=== PATIENT | male | born 1940 | race Caucasian/White ===

== ENCOUNTER 2021-11-22 14:52 | Observation (INO) ==
[2021-11-22 16:07] LABS: Albumin 4.2 g/dL (3.2-5.2); Albumin/Globulin Ratio 1.3 (1-3); Calcium 9.4 mg/dL (8.6-10.3); Globulin 3.3 g/dL (2-4); Total Bilirubin 0.6 mg/dL (0.2-1.0); Total Protein 7.5 g/dL (6.4-8.9); eGFR CKD-EPI 72.2 (>60)
[2021-11-22] MEDS ORDERED: Furosemide 40 mg/4 ml IV VIAL IV SLOW PU ONE (18:04)
[2021-11-22 18:44] LABS: ABS Basophils 0.1 10^3/ul (0-0.2); ABS Lymphocytes 1.4 10^3/ul (1.0-4.8); ABS Monocytes 0.6 10^3/ul (0-0.8); ABS Neutrophils 4.8 10^3/ul (1.5-7.7); Eosinophil % 0.6 %; Hematocrit 43 % (42-52); Hemoglobin 14.3 g/dL (14.0-18.0); Mean Corpuscular HGB Conc 34 g/dL (31-36); Mean Corpuscular Hemoglobin 30 pg (27-31); Mean Corpuscular Volume 89 fL (80-94); Mean Platelet Volume 8.9 fL (7.4-10.4); Nucleated Red Blood Cells % 0.2; Platelet Count 220 10^3/uL (150-450); Red Blood Count 4.78 10^6 /uL (4.18-5.48); Red Cell Distribution Width 15 % (10-15); White Blood Count 6.8 10^3/uL (3.5-10.8)
[2021-11-22 20:45] LABS: Urine Appearance Clear; Urine Bilirubin Negative (Negative); Urine Blood 1+ (Negative); Urine Color Yellow; Urine Glucose Negative (Negative); Urine Ketones Negative (Negative); Urine Nitrite Negative (Negative); Urine Protein Negative (Negative); Urine Specific Gravity 1.013 (1.002-1.030); Urine Urobilinogen Negative (Negative)
[2021-11-22 21:18] LABS: Urine Bacteria Absent (Absent); Urine Red Blood Cell 1+(3-5/hpf) (Absent); Urine White Blood Cell Trace(0-5/hpf) (Absent)
[2021-11-22] MEDS: Enoxaparin 40 MG/0.4 ML SYR SUBCUT SCH (21:22)
[2021-11-23 06:44] LABS: ABS Basophils 0.1 10^3/ul (0-0.2); ABS Eosinophils 0.1 10^3/ul (0-0.6); ABS Lymphocytes 1.4 10^3/ul (1.0-4.8); ABS Monocytes 0.6 10^3/ul (0-0.8); ABS Neutrophils 4.2 10^3/ul (1.5-7.7); Eosinophil % 0.9 %; Hematocrit 41 % (42-52); Lymphocyte % 22.4 %; Mean Corpuscular HGB Conc 34 g/dL (31-36); Mean Corpuscular Hemoglobin 30 pg (27-31); Mean Corpuscular Volume 90 fL (80-94); Mean Platelet Volume 9.1 fL (7.4-10.4); Platelet Count 213 10^3/uL (150-450); Red Blood Count 4.59 10^6 /uL (4.18-5.48); Red Cell Distribution Width 15 % (10-15); White Blood Count 6.3 10^3/uL (3.5-10.8)
[2021-11-23 07:06] LABS: Calcium 9.5 mg/dL (8.6-10.3); eGFR CKD-EPI 56.4 (>60)
[2021-11-23] MEDS: CMCS: Solifenacin 5 mg TAB (NF) PO SCH (12:04)
[2021-11-23] MEDS: Enoxaparin 40 MG/0.4 ML SYR SUBCUT SCH (16:56)
[2021-11-24 06:42] LABS: ABS Basophils 0.1 10^3/ul (0-0.2); ABS Eosinophils 0.1 10^3/ul (0-0.6); ABS Lymphocytes 1.6 10^3/ul (1.0-4.8); ABS Monocytes 0.8 10^3/ul (0-0.8); ABS Neutrophils 5.3 10^3/ul (1.5-7.7); Eosinophil % 0.8 %; Hematocrit 42 % (42-52); Hemoglobin 14.1 g/dL (14.0-18.0); Lymphocyte % 20.2 %; Mean Corpuscular HGB Conc 34 g/dL (31-36); Mean Corpuscular Hemoglobin 31 pg (27-31); Mean Corpuscular Volume 90 fL (80-94); Platelet Count 225 10^3/uL (150-450); Red Blood Count 4.63 10^6 /uL (4.18-5.48); Red Cell Distribution Width 15 % (10-15); White Blood Count 7.8 10^3/uL (3.5-10.8)
[2021-11-24 07:02] LABS: Calcium 9.5 mg/dL (8.6-10.3); Potassium 4.2 mmol/L (3.5-5.0); eGFR CKD-EPI 65.4 (>60)
[2021-11-24] MEDS: CMCS: Solifenacin 5 mg TAB (NF) PO SCH (09:20)
[2021-11-25] MEDS: CMCS: Solifenacin 5 mg TAB (NF) PO SCH (10:23)
[2021-11-26] MEDS: CMCS: Solifenacin 5 mg TAB (NF) PO SCH (10:27)
[2021-11-26 11:50] VITALS: BP 124/68
== END 2021-11-24 16:00 | disposition short-term general hospital (02) ==
LOC: ED 14:52 → EDHOLD 14:52 → SUATTDRO 19:37 → MEDTELE 22:32
PROVIDERS: ADMIT Physician Assistant; ATTEND Hospitalist

== ENCOUNTER 2021-11-24 16:00 | Inpatient (IN) ==
[2021-11-27] MEDS: Solifenacin 5 mg TAB (NF) PO SCH (08:34)
[2021-11-28] MEDS: Solifenacin 5 mg TAB (NF) PO SCH (11:07)
[2021-11-29] MEDS: Solifenacin 5 mg TAB (NF) PO SCH (08:12)
[2021-11-30] MEDS: Solifenacin 5 mg TAB (NF) PO SCH (08:20)
[2021-12-01] MEDS: Solifenacin 5 mg TAB (NF) PO SCH (07:32)
[2021-12-02] MEDS: Solifenacin 5 mg TAB (NF) PO SCH (08:20)
[2021-12-03] MEDS: Solifenacin 5 mg TAB (NF) PO SCH (07:42)
[2021-12-04] MEDS: Solifenacin 5 mg TAB (NF) PO SCH (08:53)
[2021-12-05] MEDS: Solifenacin 5 mg TAB (NF) PO SCH (09:30)
[2021-12-06] MEDS: Solifenacin 5 mg TAB (NF) PO SCH (08:31)
[2021-12-07] MEDS: Solifenacin 5 mg TAB (NF) PO SCH (09:47)
[2021-12-08] MEDS: Solifenacin 5 mg TAB (NF) PO SCH (09:35)
[2021-12-08] MEDS: Calcium Carb (TUMS) 500 mg CHEW TAB PO PRN (20:07)
[2021-12-08] MEDS ORDERED: Calcium Carb (TUMS) 500 mg CHEW TAB PO SCH (21:00)
[2021-12-09] MEDS: Solifenacin 5 mg TAB (NF) PO SCH (10:02)
[2021-12-09] MEDS: Calcium Carb (TUMS) 500 mg CHEW TAB PO PRN (10:10)
[2021-12-10 05:17] LABS: Hematocrit 40 % (42-52); Hemoglobin 13.4 g/dL (14.0-18.0); Mean Corpuscular HGB Conc 34 g/dL (31-36); Mean Corpuscular Hemoglobin 30 pg (27-31); Mean Corpuscular Volume 90 fL (80-94); Mean Platelet Volume 8.2 fL (7.4-10.4); Platelet Count 309 10^3/uL (150-450); Red Cell Distribution Width 15 % (10-15); White Blood Count 7.9 10^3/uL (3.5-10.8)
[2021-12-10 05:32] LABS: Potassium 4.2 mmol/L (3.5-5.0); eGFR CKD-EPI 60.3 (>60)
[2021-12-10 05:45] LABS: ABS Basophils 0.1 10^3/ul (0-0.2); ABS Eosinophils 0.2 10^3/ul (0-0.6); ABS Lymphocytes 1.8 10^3/ul (1.0-4.8); ABS Monocytes 0.8 10^3/ul (0-0.8); ABS Neutrophils 5.1 10^3/ul (1.5-7.7); Eosinophil % 2.3 %; Lymphocyte % 22.9 %; Nucleated Red Blood Cells % 0.1
[2021-12-10] MEDS: Solifenacin 5 mg TAB (NF) PO SCH (08:22)
[2021-12-11] MEDS: Solifenacin 5 mg TAB (NF) PO SCH (08:29)
[2021-12-11] MEDS: Calcium Carb (TUMS) 500 mg CHEW TAB PO PRN (12:53)
[2021-12-12] MEDS: Solifenacin 5 mg TAB (NF) PO SCH (08:44)
[2021-12-13] MEDS: Solifenacin 5 mg TAB (NF) PO SCH (09:04)
[2021-12-13] MEDS: Calcium Carb (TUMS) 500 mg CHEW TAB PO PRN (09:05)
[2021-12-14] MEDS: Solifenacin 5 mg TAB (NF) PO SCH (08:49)
[2021-12-14] MEDS: Calcium Carb (TUMS) 500 mg CHEW TAB PO PRN (10:01)
[2021-12-15] MEDS: Solifenacin 5 mg TAB (NF) PO SCH (08:34)
[2021-12-16] MEDS: Solifenacin 5 mg TAB (NF) PO SCH (08:54)
[2021-12-17] MEDS: Solifenacin 5 mg TAB (NF) PO SCH (08:23)
[2021-12-18] MEDS: Solifenacin 5 mg TAB (NF) PO SCH (08:50)
[2021-12-19] MEDS: Solifenacin 5 mg TAB (NF) PO SCH (07:46)
[2021-12-20] MEDS: Solifenacin 5 mg TAB (NF) PO SCH (08:53)
[2021-12-20] MEDS: Calcium Carb (TUMS) 500 mg CHEW TAB PO PRN (17:29)
[2021-12-21] MEDS: Solifenacin 5 mg TAB (NF) PO SCH (08:57)
[2021-12-22] MEDS: Solifenacin 5 mg TAB (NF) PO SCH (17:09)
[2021-12-23] MEDS: Calcium Carb (TUMS) 500 mg CHEW TAB PO PRN (09:25)
[2021-12-23] MEDS: Solifenacin 5 mg TAB (NF) PO SCH (09:42)
[2021-12-24] MEDS: Solifenacin 5 mg TAB (NF) PO SCH (18:16)
[2021-12-25] MEDS: Solifenacin 5 mg TAB (NF) PO SCH (09:20)
[2021-12-25 09:48] LABS: Rapid COVID-19 Molecular Undetected (Undetected)
[2021-12-25 11:28] VITALS: BP 139/76
== END 2021-12-25 14:55 | DRG 301 ==
LOC: SUATTDRO 16:00 → MEDTELE 11-26 11:46
PROVIDERS: ADMIT Hospitalist; ATTEND Hospitalist

== ENCOUNTER 2023-05-06 08:52 | Observation (INO) ==
[2023-05-06] MEDS ORDERED: Iodixanol (CONTRAST) 320 MG/ML 100 ML SDV IV ONE (09:10)
[2023-05-06 09:32] LABS: ABS Basophils 0.1 10^3/uL (0.0-0.1); ABS Lymphocytes 1.8 10^3/uL (1.0-4.8); ABS Monocytes 0.8 10^3/uL (0.0-1.1); ABS Neutrophils 6.6 10^3/uL (1.5-7.6); ABS Nucleated RBC 0.01 10^3/ul; Eosinophil % 0.2 %; Hematocrit 41.3 % (38-53); Hemoglobin 14.1 g/dL (13.2-16.3); Lymphocyte % 19.2 %; Mean Corpuscular Hemoglobin 30.1 pg (27-33); Mean Corpuscular Volume 88.4 fL (80-97); Mean Platelet Volume 8.5 fL (7.5-11.2); Nucleated Red Blood Cells % 0.1 /100 WBC (0.0-0.4); Platelet Count 235 10^3/uL (150-450); Red Blood Count 4.68 10^6/uL (4.06-5.63); Red Cell Distribution Width 16.2 % (12-17); White Blood Count 9.3 10^3/uL (3.6-10.2)
[2023-05-06 09:48] LABS: Activated Partial Thrombo Time 32.7 seconds (26.0-38.0); INR 2.17 (0.88-1.18)
[2023-05-06 09:50] LABS: Albumin/Globulin Ratio 1.1 (1-3); Calcium 9.5 mg/dL (8.6-10.3); Creatinine, Serum 1.07 mg/dL (0.67-1.17); Globulin 3.5 g/dL (2-4); HDL Cholesterol 44.1 mg/dL; Potassium 4.2 mmol/L (3.5-5.0); Total Bilirubin 0.7 mg/dL (0.2-1.0); Total Protein 7.5 g/dL (6.4-8.9); eGFR CKD-EPI 69.7 (>60)
[2023-05-06] MEDS ORDERED: Enoxaparin 40 MG/0.4 ML SYR SUBCUT SCH (16:00)
[2023-05-06 16:39] LABS: Urine Appearance Clear; Urine Bilirubin Negative (Negative); Urine Blood 1+ (Negative); Urine Color Yellow; Urine Glucose Negative (Negative); Urine Ketones Negative (Negative); Urine Nitrite Negative (Negative); Urine Protein Negative (Negative); Urine Specific Gravity 1.024 (1.002-1.030); Urine Urobilinogen Negative (Negative)
[2023-05-06 16:46] LABS: Urine Bacteria Absent (Absent); Urine Red Blood Cell 1+(3-5/hpf) (Absent); Urine White Blood Cell Trace(0-5/hpf) (Absent)
[2023-05-07 06:30] LABS: ABS Eosinophils 0.2 10^3/uL (0.0-0.5); ABS Lymphocytes 1.6 10^3/uL (1.0-4.8); ABS Monocytes 0.9 10^3/uL (0.0-1.1); ABS Neutrophils 5.3 10^3/uL (1.5-7.6); ABS Nucleated RBC 0.01 10^3/ul; Eosinophil % 2.5 %; Hemoglobin 14.2 g/dL (13.2-16.3); Lymphocyte % 20.3 %; Mean Corpuscular Hemoglobin 30.4 pg (27-33); Mean Corpuscular Hgb Conc 34.5 g/dL (31-36); Mean Corpuscular Volume 88.1 fL (80-97); Mean Platelet Volume 8.9 fL (7.5-11.2); Nucleated Red Blood Cells % 0.1 /100 WBC (0.0-0.4); Platelet Count 233 10^3/uL (150-450); Red Blood Count 4.66 10^6/uL (4.06-5.63); Red Cell Distribution Width 16.1 % (12-17)
[2023-05-07 06:56] LABS: Calcium 9.6 mg/dL (8.6-10.3); Creatinine, Serum 1.19 mg/dL (0.67-1.17); Potassium 4.3 mmol/L (3.5-5.0); eGFR CKD-EPI 61.4 (>60)
[2023-05-07 07:12] VITALS: BP 113/72
== END 2023-05-07 11:26 ==
LOC: EDHOLD 08:52 → ED 08:52 → MEDTELE 14:42
PROVIDERS: ADMIT Internal Medicine; ATTEND Internal Medicine

== ENCOUNTER 2024-10-13 07:12 | Inpatient (IN) ==
[2024-10-13 07:57] LABS: Hematocrit 41.1 % (38-53); Hemoglobin 14.4 g/dL (13.2-16.3); Mean Corpuscular Hemoglobin 31.8 pg (27-33); Mean Corpuscular Hgb Conc 35.1 g/dL (31-36); Mean Corpuscular Volume 90.7 fL (80-97); Mean Platelet Volume 9.7 fL (7.5-11.2); Platelet Count 181 10^3/uL (150-450); Red Blood Count 4.53 10^6/uL (4.06-5.63); Red Cell Distribution Width 15.4 % (12-17); White Blood Count 14.3 10^3/uL (3.6-10.2)
[2024-10-13 07:58] LABS: Activated Partial Thrombo Time 20.7 seconds (26.0-38.0); INR 1.16 (0.85-1.14)
[2024-10-13] MEDS ORDERED: cefTRIAXone 2 GM ADDV.VIAL 2 GM in NS 0.9% 100 ml BAG 100 ML IV ONE (08:12)
[2024-10-13 08:16] LABS: Albumin 3.6 g/dL (3.5-5.7); C Reactive Protein 141.61 mg/L (<8.01); Calcium 9.3 mg/dL (8.6-10.3); Creatinine, Serum 1.29 mg/dL (0.67-1.17); Globulin 3.6 g/dL (2-4); Potassium 4.2 mmol/L (3.5-5.0); Total Bilirubin 0.7 mg/dL (0.2-1.0); Total Protein 7.2 g/dL (6.4-8.9); eGFR CKD-EPI 55.4 (>60)
[2024-10-13 08:24] LABS: ABS Basophils 0.1 10^3/uL (0.0-0.1); ABS Lymphocytes 1.4 10^3/uL (1.0-4.8); ABS Neutrophils 10.9 10^3/uL (1.5-7.6); Lymphocyte % 9.6 %; RBC Morphology Normal (Normal)
[2024-10-13] MEDS: cefTRIAXone 2 gm/50 mL D5W 2 GM/50 ML BAG IV ONE (08:39)
[2024-10-13] MEDS: Azithromycin 500 mg/250 ml NS 500 MG/250 ML BAG IVPB ONE (08:45)
[2024-10-13] MEDS: Azithromycin 500 mg/250 ml NS 500 MG/250 ML BAG IVPB SCH (09:39)
[2024-10-13 09:43] LABS: High Sensitivity Troponin 1 Hr 35 pg/mL (<20)
[2024-10-13] MEDS: Enoxaparin 40 MG/0.4 ML SYR SUBCUT SCH (10:39)
[2024-10-13] MEDS ORDERED: Albuterol 2.5mg/3 ml (0.083%) NEB.SOLN INH PRN (11:47)
[2024-10-13] MEDS ORDERED: Acetylcysteine INHALATION SOL 200 MG/ML NEB.SOLN 10 ML INH SCH (12:00)
[2024-10-13] MEDS: Piperacillin/Tazobac 3.375 BAG 3.375 GM/100 ML BAG IV ONE (13:00)
[2024-10-13] MEDS ORDERED: Zosyn per Pharmacy NOTE FOLLOW UP SCH (13:00)
[2024-10-13] MEDS: ZOSYN 3.375 GM Q8H per EXTENDED INFUSION IV SCH (17:00)
[2024-10-14 05:08] LABS: ABS Basophils 0.1 10^3/uL (0.0-0.1); ABS Lymphocytes 1.9 10^3/uL (1.0-4.8); ABS Monocytes 1.2 10^3/uL (0.0-1.1); ABS Neutrophils 11.4 10^3/uL (1.5-7.6); ABS Nucleated RBC 0.01 10^3/ul; Hematocrit 37.8 % (38-53); Hemoglobin 13.1 g/dL (13.2-16.3); Mean Corpuscular Hemoglobin 31.6 pg (27-33); Mean Corpuscular Hgb Conc 34.7 g/dL (31-36); Mean Corpuscular Volume 91.3 fL (80-97); Mean Platelet Volume 9.3 fL (7.5-11.2); Nucleated Red Blood Cells % 0.1 %/100WBC (0.0-0.8); Platelet Count 157 10^3/uL (150-450); Red Blood Count 4.14 10^6/uL (4.06-5.63); Red Cell Distribution Width 15.5 % (12-17); White Blood Count 14.6 10^3/uL (3.6-10.2)
[2024-10-14 06:13] LABS: Calcium 8.5 mg/dL (8.6-10.3); Creatinine, Serum 1.24 mg/dL (0.67-1.17); Magnesium 1.7 mg/dL (1.9-2.7); Potassium 4.1 mmol/L (3.5-5.0)
[2024-10-14 06:59] LABS: Urine Appearance Turbid; Urine Bilirubin Negative (Negative); Urine Blood 1+ (Negative); Urine Color Yellow; Urine Glucose Negative (Negative); Urine Ketones 1+ (Negative); Urine Nitrite Negative (Negative); Urine Protein 1+ (>=30 mg/dL) (Negative); Urine Specific Gravity 1.028 (1.002-1.030); Urine Urobilinogen Negative (Negative); Urine pH 5.5 (5.0-8.0)
[2024-10-14 07:29] LABS: Urine Red Blood Cell Absent (Absent); Urine White Blood Cell 1+(6-10/hpf) (Absent)
[2024-10-14] MEDS ORDERED: Sulfur Hexaflouride MICROSPHR 25 MG VIAL IV PRN (08:19)
[2024-10-14] MEDS: Magnesium Sulfate IV 1GM/100ML 1 GM/100 ML BAG IV ONE (08:25)
[2024-10-14] MEDS: Aspirin EC 81 mg TAB.EC (enteric coated) PO SCH (08:27)
[2024-10-14] MEDS ORDERED: Azithromycin 500 mg/250 ml NS 500 MG/250 ML BAG IVPB SCH ×2 (09:00)
[2024-10-14] MEDS ORDERED: cefTRIAXone 1 gm/50 mL D5W 1 GM/50 ML BAG IV SCH ×2 (09:00)
[2024-10-14] MEDS: Azithromycin 500 mg/250 ml NS 500 MG/250 ML BAG IVPB SCH (09:51)
[2024-10-14] MEDS: Magnesium Sulfate 2 gm BAG 2 GM/50 ML BAG IVPB ONE (10:00)
[2024-10-14] MEDS: Albuterol 2.5mg/3 ml (0.083%) NEB.SOLN INH SCH (10:22)
[2024-10-14] MEDS: Lidocaine 1% MPF 5 ML VIAL INJ ONE (12:24)
[2024-10-15 04:04] LABS: Hematocrit 37.5 % (38-53); Hemoglobin 12.8 g/dL (13.2-16.3); Mean Corpuscular Hgb Conc 34.1 g/dL (31-36); Mean Corpuscular Volume 91.1 fL (80-97); Mean Platelet Volume 9.6 fL (7.5-11.2); Platelet Count 191 10^3/uL (150-450); Red Blood Count 4.12 10^6/uL (4.06-5.63); Red Cell Distribution Width 15.3 % (12-17); White Blood Count 14.7 10^3/uL (3.6-10.2)
[2024-10-15 04:42] LABS: Calcium 8.2 mg/dL (8.6-10.3); Creatinine, Serum 1.1 mg/dL (0.67-1.17); Potassium 3.5 mmol/L (3.5-5.0)
[2024-10-15 04:50] LABS: ABS Basophils 0.1 10^3/uL (0.0-0.1); ABS Monocytes 1.3 10^3/uL (0.0-1.1); ABS Neutrophils 11.4 10^3/uL (1.5-7.6); ABS Nucleated RBC 0.02 10^3/ul; Eosinophil % 0.1 %; Lymphocyte % 13.5 %; Nucleated Red Blood Cells % 0.1 %/100WBC (0.0-0.8)
[2024-10-15] MEDS: Albuterol 2.5mg/3 ml (0.083%) NEB.SOLN INH SCH (19:40)
[2024-10-17 07:12] LABS: Hematocrit 36.8 % (38-53); Hemoglobin 12.7 g/dL (13.2-16.3); Mean Corpuscular Hemoglobin 31.3 pg (27-33); Mean Corpuscular Hgb Conc 34.6 g/dL (31-36); Mean Corpuscular Volume 90.5 fL (80-97); Mean Platelet Volume 9.2 fL (7.5-11.2); Platelet Count 212 10^3/uL (150-450); Red Blood Count 4.06 10^6/uL (4.06-5.63); Red Cell Distribution Width 15.4 % (12-17); White Blood Count 10.8 10^3/uL (3.6-10.2)
[2024-10-17 07:27] LABS: Calcium 7.8 mg/dL (8.6-10.3); Creatinine, Serum 0.88 mg/dL (0.67-1.17); Potassium 3.3 mmol/L (3.5-5.0); eGFR CKD-EPI 85.9 (>60)
[2024-10-17] MEDS: Potassium Chloride LIQUID 20 MEQ/15 ML LIQUID PO ONE (10:08)
[2024-10-17] MEDS: Furosemide 40 mg/4 ml IV VIAL IV ONE (11:52)
[2024-10-17] MEDS: KCL 20 MEQ/100 ML IVPREMIX 20 MEQ/100 ML BAG IV SCH (11:57)
[2024-10-18 09:59] LABS: Magnesium 1.7 mg/dL (1.9-2.7)
[2024-10-18] MEDS: Magnesium Sulfate 2 gm BAG 2 GM/50 ML BAG IVPB ONE (10:21)
[2024-10-18] MEDS: KCL 20 MEQ/100 ML IVPREMIX 20 MEQ/100 ML BAG IV SCH (12:05)
[2024-10-19 06:22] LABS: Hematocrit 37.7 % (38-53); Hemoglobin 12.9 g/dL (13.2-16.3); Mean Corpuscular Hemoglobin 31.1 pg (27-33); Mean Corpuscular Hgb Conc 34.3 g/dL (31-36); Mean Corpuscular Volume 90.7 fL (80-97); Mean Platelet Volume 8.9 fL (7.5-11.2); Platelet Count 310 10^3/uL (150-450); Red Blood Count 4.16 10^6/uL (4.06-5.63); Red Cell Distribution Width 15.3 % (12-17); White Blood Count 16.8 10^3/uL (3.6-10.2)
[2024-10-19 07:09] LABS: Calcium 7.9 mg/dL (8.6-10.3); Creatinine, Serum 1.05 mg/dL (0.67-1.17); Potassium 3.7 mmol/L (3.5-5.0); eGFR CKD-EPI 70.9 (>60)
[2024-10-19 08:16] LABS: ABS Basophils 0.1 10^3/uL (0.0-0.1); ABS Eosinophils 0.1 10^3/uL (0.0-0.5); ABS Lymphocytes 1.7 10^3/uL (1.0-4.8); ABS Monocytes 1.6 10^3/uL (0.0-1.1); ABS Neutrophils 13.4 10^3/uL (1.5-7.6); ABS Nucleated RBC 0.03 10^3/ul; Eosinophil % 0.3 %; Lymphocyte % 10.2 %; Nucleated Red Blood Cells % 0.1 %/100WBC (0.0-0.8); RBC Morphology Normal (Normal)
[2024-10-19] MEDS: Potassium Chlor 20 meq TAB.ER PO ONE (12:28)
[2024-10-20 07:25] LABS: Hematocrit 40.4 % (38-53); Hemoglobin 13.4 g/dL (13.2-16.3); Mean Corpuscular Hemoglobin 30.2 pg (27-33); Mean Corpuscular Hgb Conc 33.2 g/dL (31-36); Mean Corpuscular Volume 90.9 fL (80-97); Platelet Count 330 10^3/uL (150-450); Red Blood Count 4.44 10^6/uL (4.06-5.63); Red Cell Distribution Width 15.5 % (12-17); White Blood Count 16.2 10^3/uL (3.6-10.2)
[2024-10-20 07:34] LABS: Calcium 7.9 mg/dL (8.6-10.3); Creatinine, Serum 0.95 mg/dL (0.67-1.17); Potassium 3.7 mmol/L (3.5-5.0); eGFR CKD-EPI 79.9 (>60)
[2024-10-20 08:34] LABS: ABS Basophils 0.1 10^3/uL (0.0-0.1); ABS Eosinophils 0.3 10^3/uL (0.0-0.5); ABS Lymphocytes 1.6 10^3/uL (1.0-4.8); ABS Monocytes 1.2 10^3/uL (0.0-1.1); ABS Neutrophils 13.1 10^3/uL (1.5-7.6); Eosinophil % 1.5 %; RBC Morphology Normal (Normal)
[2024-10-20] MEDS: Albuterol 2.5mg/3 ml (0.083%) NEB.SOLN INH SCH ×2 (11:32→15:21)
[2024-10-20] MEDS ORDERED: Senna TAB 8.6 mg TAB PO PRN (17:19)
[2024-10-20] MEDS ORDERED: Haloperidol 5 mg/ml SDV IV/IM 5 MG/ML AMP IV SLOW PU PRN (17:19)
[2024-10-20] MEDS ORDERED: Polyethylene Glycol 3350 17 GM PACKET PO PRN (17:19)
[2024-10-20] MEDS ORDERED: Ondansetron ODT 4 mg TAB 4 MG TAB SL PRN (17:19)
[2024-10-20] MEDS ORDERED: Atropine 1% (ORAL/SL) 15 ML BTL SL PRN (17:19)
[2024-10-20] MEDS ORDERED: Morphine ORAL CONCENTRATE 5 MG/0.25 ML ORAL.SYRIN SL PRN (17:19)
[2024-10-20] MEDS ORDERED: LORazepam 2 mg VIAL 1 ml IV PUSH PRN (18:41)
[2024-10-20] MEDS ORDERED: Lorazepam PYXIS KEY PRN (18:41)
[2024-10-20 21:54] VITALS: BP 150/63
[2024-10-20] MEDS: Valproic Acid IV 250 MG in NS 0.9% 100 ml BAG 100 ML IVPB SCH (22:15)
[2024-10-21] MEDS: Loperamide LIQ 2 MG/15 ML UDC PO ONE (12:02)
[2024-10-21] MEDS ORDERED: LORazepam ORAL LIQ 2 MG/ML BULK BOTTLE SL PRN (13:01)
== END 2024-10-21 16:15 | DRG 871 ==
LOC: ED 07:12 → SUATTDRO 08:51 → EDHOLD 08:51 → ICU 10:10 → MED 10-15 08:15
PROVIDERS: ADMIT Internal Medicine Critical Care Medicine; ATTEND Internal Medicine